=== PATIENT | female | born 1990 | race Caucasian/White ===

== ENCOUNTER 2019-09-23 21:05 | Inpatient (IN) | payer OTHER ==
[2019-09-23] MEDS: ELECTROLYTE-148 SOLN 1,000 ML IV SCH (22:00)
[2019-09-23 22:41] LABS: BASO % 0.2 % (0-2.0); EOS % 0.4 % (0-4.5); HEMATOCRIT 33.9 % (32.4-45.2); HEMOGLOBIN 11.3 GM/dL (10.7-15.3); LYMPH % 26.6 % (8-40); MCH 29.2 pg (25.7-33.7); MCHC 33.4 g/dl (32.0-36.0); MEAN CELL VOLUME 87.5 fl (80-96); MEAN PLT VOLUME 9.8 fl (7.5-11.1); MONO % 7.5 % (3.8-10.2); NEUT % 65.3 % (42.8-82.8); RBC 3.87 M/mm3 (3.60-5.2); RDW 14.4 % (11.6-15.6); RETICULOCYTES 2.27 % (0.5-1.5)
[2019-09-23 22:52] LABS: INR 0.85 (0.83-1.09)
[2019-09-23 22:54] VITALS: BMI 37.5
[2019-09-23 22:55] LABS: ACTIVATED PTT 28.2 SECONDS (25.2-36.5)
[2019-09-23 23:02] LABS: PLATELET COUNT 220 K/MM3 (134-434); PLATELET ESTIMATE ADEQUATE
[2019-09-23] MEDS ORDERED: BUTORPHANOL TARTRATE 1 MG/ML VIAL IVPB ONE (23:08)
[2019-09-23] MEDS ORDERED: PROMETHAZINE HCL 25 MG/1 ML VIAL IVPUSH ONE (23:08)
[2019-09-23] MEDS ORDERED: ZOLPIDEM TARTRATE 5 MG TABLET PO PRN (23:10)
[2019-09-23 23:13] LABS: BLOOD UREA NITROGEN 8.4 mg/dL (7-18); CREATININE 0.9 mg/dL (0.55-1.3); POTASSIUM 4.3 mmol/L (3.5-5.1)
--- NOTE | 2019-09-23 23:15 | HP ---
Past Medical History - Admission Chief Complaint: post date , oligo for induction History of Present Illness: borderline gdm History Source: Patient Limitations to Obtaining History: No Limitations - Past Medical History [employer]SHA[employer]ANCER: No: Alzheimer's, CVA, Dementia, Migraine, Multiple Sclerosis, Peripheral Neuropathy, Parkinson's, Seizure, Syncope, TIA, Vertigo, Other Cardiovascular: No: AFIB, Aneurysm, Aortic Insufficiency, Aortic Stenosis, CAD, CHF, Deep Vein Thrombosis, HTN, Hyperlipdemia, LA, Mitral Insufficiency, Mitral Stenosis, Murmur, Pulmonary Hypertension, Other Pulmonary: No: Asthma, Bronchitis, Cancer, COPD, O2 Dependent, Pneumonia, Previously Intubated, Pulmonary Embolus, Pulmonary Fibrosis, Sleep Apnea, Other Gastrointestinal: No: Ascites, Cancer, Constipation, Crohn's Disease, Diverticulitis, Diverticulosis, Esophageal Varices, Gastritis, GERD, GI Bleed, Hemorrhoids, Hiatal Hernia, Inflamatory Bowel Disease, Irritable Bowel Disease, Pancreatitis, Peptic Ulcer Disease, Ulcerative Colitis, Other Hepatobiliary: No: Cirrhosis, Cholelithiasis, Cholecystitis, Choledocholithiasis , Hepatitis A, Hepatitis B, Hepatitis C, Other Renal/: No: Renal Failure, Renal Inusuff, BPH, Cancer, Hematuria, Hemodialysis , Neurogenic Bladder, Renal Calculi, UTI, Other Reproductive: No: Ectopic , Endometriosis, Fibroids, PID, Polycystic Ovary Syndrome, Postmenopausal, Other ...: 1 ...Para: 0 ...Term: 0 ...: 0 ...Spon : 0 ...Induced : 0 ...Multiple Gestation: 0 ...LMP: 12/15/18 ... Weeks Gestation by Dates: 40.1 ...EDC by Dates: 09/22/19 Heme/Onc: No: Anemia, B12 Deficiency, Bleeding Disorder, Cancer, Current Chemotherapy, Current Radiation Therapy, Hemochromatosis, Hypercoaguable State, Myeloproliferative Synd, Sickle Cell Disease, Sickle Cell Trait, Thrombocytopenia, Other Infectious Disease: No: AIDS, C-Diff, Herpes Zoster, HIV, MRSA, STD's, Tuberculosis, VREF, Other Psych: No: Addictions, Anxiety, Bipolar, Depression, Panic, Psychosis, Schizophrenia, Other Musculoskeletal: No: Bursitis, Chronic low back pain, Hemiparesis, Hemiplegia, Osteoarthritis, Paraplegia, Other Rheumatology: No: Fibromyalgia, Gout, Lupus, Rheumatoid Arthritis, Sarcoidosis, Vasculitis, Other ENT: No: Allergic Rhinitis, Sinusitis, Other Endocrine: No: Dmitri's Disease, [place]'s Disease, Diabetes Insipidus, Diabetes Mellitus, Hyperparathyroidism, Hyperthyroidism, Hypothyroidism, Osteopenia, SIADH, Other Dermatology: No: Basal Cell, Cellulitis, Eczema, Melanoma, Psoriasis, Squamous Cell, Other - Past Surgical History Past Surgical History: No: None, AAA Repair, AICD, Amputation, Appendectomy, Arthrosocopy, AV Fistula/Graft, Bariatric Surgery, Breast Biopsy, Bypass, CABG, Carotid Endarterectomy, Cataract Removal, Cholecystectomy, Colectomy, Colonoscopy, Colostomy, Craniotomy, , Cystectomy, Hernia Repair, Hysterectomy, Ileal Conduit, Ileosotomy, Joint Replacement, Kidney Transplant, Laminectomy, Liver Transplant, Mastectomy, Nephrectomy, Oopherectomy, Orchiectomy, Permanent Pacemaker, Prostatectomy, Splenectomy, Stent, Thoracotomy , TURP, Tonsillectomy, Tubal Ligation, Upper Endoscopy, Valve Replacement, Vasectomy, Vein Stripping/Ligation Hx Myomectomy: No Hx Transabdominal Cerclage: No - Advance Directives Advance Directives: Yes: Living Will - Smoking History Smoking history: Never smoked Have you smoked in the past 12 months: No - Alcohol/Substance Use Hx Alcohol Use: No History of Substance Use: reports: None - Social History Usual Living Arrangement: Yes: With Significant Other Do you think of yourself as: Straight/Heterosexual ADL: Independent History of Recent Travel: No Home Medications - Allergies Allergies/Adverse Reactions: Allergies Allergy/AdvReac Type Severity Reaction Status Date / Time No Known Drug Allergies Allergy Verified 09/23/19 22:11 Family Medical History Family History: Denies Review of Systems - Review of Systems Constitutional: reports: No Symptoms Eyes: reports: No Symptoms HENT: reports: No Symptoms Neck: reports: No Symptoms Cardiovascular: reports: No Symptoms Respiratory: reports: No Symptoms Gastrointestinal: reports: No Symptoms Genitourinary: reports: No Symptoms Breasts: reports: No Symptoms Reported Musculoskeletal: reports: No Symptoms Integumentary: reports: No Symptoms Neurological: reports: No Symptoms Endocrine: reports: No Symptoms Hematology/Lymphatic: reports: No Symptoms Psychiatric: reports: No Symptoms Physical Exam - Maternity Vital Signs: Vital Signs Temperature 98.1 F 09/23/19 21:05 Pulse Rate 64 09/23/19 22:57 Respiratory Rate 18 09/23/19 22:57 Blood Pressure 132/93 09/23/19 22:57 O2 Sat by Pulse Oximetry (%) Constitutional: Yes: Well Nourished, No Distress, Calm Eyes: Yes: WNL, Conjunctiva Clear, EOM Intact HENT: Yes: WNL, Atraumatic, Normocephalic Neck: Yes: WNL, Supple, Trachea Midline Cardiovascular: Yes: WNL, Regular Rate and Rhythm Lungs: Clear to auscultation Breast(s): Yes: WNL - Abdominal Exam/OB Fundal Height: 40 Number of Fetuses: Single Presentation: Vertex Regularity: Irregular Intensity: Mild Monitor Mode: External Heart Rate Location: [facility] Category: I Accelerations: Uniform Decelerations: None - Vaginal Exam/OB Vaginal Bleediing: No Speculum Exam: No Dilatation (cm): 1 Effacement (%): 50 Amniotic Membrane Status: Intact Presentation: Vertex/Position Station: -2 - Physical Exam Musculoskeletal: Yes: WNL Extremities: Yes: WNL Edema: Yes Edema: LUE: 1+, RUE: 1+, LLE: 1+, RLE: 1+ Integumentary: Yes: WNL Deep Tendon Reflex Grade: Normal +2 ...Motor Strength: WNL Psychiatric: Yes: WNL, Alert, Oriented - Labs Lab Results: CBC, BMP 09/23/19 22:15 Hemorrhage Risk Assessment - Risk Factors Medium Risk Factors: Yes: None High Risk Factors: Yes: None Risk Score: 1 Risk Level: Medium Risk Assessment/Plan for cervidil , then pitocin, and arom
[2019-09-23] MEDS ORDERED: DINOPROSTONE 10 MG VAGINAL SUPPOSITORY VG ONE (23:20)
[2019-09-24] MEDS ORDERED: OXYTOCIN 30 UNITS in 0.9% NS 30 UNIT/500 ML INFUS.BAG IVPB ONE (06:13)
[2019-09-24] MEDS: OXYTOCIN 30 UNITS in 0.9% NS 30 UNIT/500 ML INFUS.BAG IVPB SCH (06:20)
[2019-09-24] MEDS ORDERED: BUTORPHANOL TARTRATE 1 MG/ML VIAL ONE ×2 (08:43)
[2019-09-24] MEDS ORDERED: PROMETHAZINE HCL 25 MG/1 ML VIAL ONE (08:43)
[2019-09-24 09:23] LABS: POC NITRAZINE POS
--- NOTE | 2019-09-24 10:33 | PN ---
Progress Note (short form) - Note Progress Note: 8 am, 2 cm, -2, 60 %, srom, uc q 5 mi, asking for stadol , nst reactive
[2019-09-24] MEDS ORDERED: FENTANYL/BUPIVACAINE/NS/PF - PCEA - 50 ML DISP.SYRIN EP ONE ×2 (11:57→17:56)
[2019-09-24] MEDS ORDERED: NALOXONE HCL 0.4 MG/ML VIAL IVPUSH PRN (13:55)
[2019-09-24] MEDS ORDERED: FENTANYL/BUPIVACAINE/NS/PF - PCEA - 50 ML DISP.SYRIN EP SCH (14:00)
[2019-09-24] MEDS ORDERED: CITRIC ACID/SODIUM CITRATE 30 ML UNIT-DOSE CUP PO ONE (21:06)
--- NOTE | 2019-09-24 21:08 | PN ---
Progress Note (short form) - Note Progress Note: 10 am 2 cm -2, 60%, asking for stadol, uc q 3 to 5 min, nst reactive
--- NOTE | 2019-09-24 21:09 | PN ---
Progress Note (short form) - Note Progress Note: 230 pm, 4 cm, -2, 705, nst reactive, uc q 3 min, comfort w epidural , continue pitocin
[2019-09-24] MEDS ORDERED: OXYTOCIN 20 UNITS in 0.9% NS 20 UNIT/1,000 ML INFUS.BAG IV ONE ×2 (21:11→23:19)
--- NOTE | 2019-09-24 21:11 | PN ---
Progress Note (short form) - Note Progress Note: 615 pm 4cm, -2, 60%, no cervical change, uc q 3 min, continue pitocin, nst reactive
--- NOTE | 2019-09-24 21:12 | PN ---
Progress Note (short form) - Note Progress Note: 845 pm, cervix 4 cm, -2, 60%, no cervical change, uc q 3 min, alrearey 18 hrs srom, no cervical change x 7hrs, will proceed to c s
[2019-09-24] MEDS ORDERED: PROPOFOL 20 ML ONE (21:15)
[2019-09-24] MEDS ORDERED: ceFAZolin SODIUM 1 GM VIAL ONE ×2 (21:16→21:17)
[2019-09-24] MEDS ORDERED: OXYTOCIN 10 UNITS/ML VIAL ONE ×2 (21:17→21:24)
[2019-09-24] MEDS ORDERED: SODIUM CHLORIDE 0.9% P/F 10 ML VIAL IJ ONE (21:19)
[2019-09-24] MEDS ORDERED: KETOROLAC TROMETHAMINE 30 MG/1 ML VIAL ONE ×2 (21:19→21:58)
[2019-09-24] MEDS ORDERED: PHENYLEPHRINE HCL 10 MG/1 ML SINGLE DOSE VIAL ONE (21:25)
[2019-09-24] MEDS ORDERED: MIDAZOLAM HCL 2 MG/2 ML SINGLE DOSE VIAL ONE (22:04)
[2019-09-24] MEDS ORDERED: ONDANSETRON 4 MG/2 ML VIAL IVPUSH PRN (22:13)
[2019-09-24] MEDS ORDERED: ACETAMINOPHEN 325 MG TABLET (FP) PO PRN (22:13)
[2019-09-24] MEDS ORDERED: morphine SULFATE/PF 0.5 MG/ML (2cc Syringe - QUVA) EP ONE (22:13)
[2019-09-24] MEDS ORDERED: IBUPROFEN 600 MG TABLET (FP) PO PRN (22:13)
[2019-09-24] MEDS ORDERED: IBUPROFEN 800 MG/8 ML IJ IVPB PRN (22:45)
[2019-09-24] MEDS ORDERED: METHYLERGONOVINE MALEATE 0.2 MG/1 ML AMP IM PRN (22:45)
[2019-09-24] MEDS ORDERED: SENNOSIDES/DOCUSATE COMBO (SENNA PLUS) TABLET (UD) PO PRN (22:45)
[2019-09-24] MEDS ORDERED: oxyCODONE HCL 5 MG TABLET PO PRN ×2 (22:45)
--- NOTE | 2019-09-24 22:57 | OP ---
Operative Note - Note: Operative Date: 09/24/19 Pre-Operative Diagnosis: f t progress Operation: primary lt c s Post-Operative Diagnosis: Same as Pre-op Surgeon: Markel Schultz Clinical Resource Director: Jeff Perdue Anesthesiologist/STRUCTURAL ARCHITECT: Trina Calvillo Anesthesia: Epidural Estimated Blood Loss (mls): 800 (no complications ) Operative Report Dictated: Yes
[2019-09-24] MEDS: OXYTOCIN 20 UNITS in 0.9% NS 20 UNIT/1,000 ML INFUS.BAG IV SCH (23:00)
--- NOTE | 2019-09-25 00:24 | OP ---
DATE OF OPERATION: 09/24/2019 PREOPERATIVE DIAGNOSIS: Failure to progress. POSTOPERATIVE DIAGNOSIS: Occiput posterior. PROCEDURE: Primary low transverse section. SURGEON: Markel Schultz MD. [facility]: DYLAN Posey. ANESTHESIOLOGIST: Trina Calvillo MD. INDICATION: This is a 28-year-old female patient, oligohydramnios, 40 weeks and 2 days , was brought into the hospital for induction process of labor, and patient came in on September 23. Patient had a Cervidil for the morning 8 hours, and after Cervidil patient had a contraction spontaneously, then spontaneous rupture of membrane around 3:30 in the morning of September 24. So patient started having contractions by herself more aggressively, and every 4 to 5 hours the patient received augmentation Pitocin around 6 o'clock on September 24, and patient's cervix progressed to 2 cm around 8 o'clock in the morning, 60%, -2, and patient has continued to receive Pitocin, and patient asked for pain medication, and patient received Stadol IV pain medication around 10 o'clock in the morning, and patient continued laboring, and around 2 o'clock patient received epidural, cervix was about 3 cm, 60%, -2, and patient continued to receive Pitocin, and was laboring with epidural. Around 6:30 patient's cervix still remained the same, 3 to 4 cm and 60%, -2, and around 8:45 cervix still remained about 3 to 4 cm, no cervical change. The patient had spontaneous rupture around 18 hours at this time, and the cervix still options and risks and benefits explained to the patient for section, and patient agreed and patient taken to OR for failure to progress for primary low transverse section. Patient already had epidural, so patient received top-off for re-dose of epidural anesthesia. The patient was comfortable. DESCRIPTION OF PROCEDURE: Patient was placed on operating table in supine position. The patient's abdomen and pelvis were prepped and draped in the usual sterile manner. Pfannenstiel incision was made. The incision was made through skin, subcutaneous tissue, until the fascia was nicked in the midline. The fascia was extended bilaterally. Intraperitoneal cavity was entered, bladder flap was created. Low transverse segment was entered, baby was delivered from OP position. Baby was handed over to the coat room attendant after umbilical cord was doubly clamped and cut. Placenta was removed. Uterus was closed in single layer, first layer interlocking Vicryl suture, good hemostasis, and both gutters were cleaned. Bladder flap was closed and draining clear urine. Blood loss about 800 mL. Patient tolerated procedure well. No complications. Both ovaries, fallopian tubes, uterus were within normal limits. Patient was transferred to recovery room in stable condition draining clear urine. MD KILEY VILLAVICENCIO/[id number]
[2019-09-25 09:04] LABS: BASO % 0.2 % (0-2.0); EOS % 0.2 % (0-4.5); HEMATOCRIT 29.2 % (32.4-45.2); HEMOGLOBIN 9.4 GM/dL (10.7-15.3); LYMPH % 13.1 % (8-40); MCH 28.5 pg (25.7-33.7); MCHC 32.1 g/dl (32.0-36.0); MEAN CELL VOLUME 88.7 fl (80-96); MEAN PLT VOLUME 9.6 fl (7.5-11.1); MONO % 5.1 % (3.8-10.2); NEUT % 81.4 % (42.8-82.8); PLATELET COUNT 190 K/MM3 (134-434); RDW 14.7 % (11.6-15.6); WHITE BLOOD COUNT 12.9 K/mm3 (4.0-10.0)
--- NOTE | 2019-09-25 09:50 | PN ---
Progress Note, Physician Chief Complaint: s/p csection under epidural anesthesia postop day one History of Present Illness: epidural duramorph for post op analgesia - Current Medication List Current Medications: Active Medications Acetaminophen (Tylenol -) 650 mg PO Q4H PRN PRN Reason: FEVER Bisacodyl (Dulcolax Suppository -) 10 mg RC PRN PRN PRN Reason: CONSTIPATION Diphenhydramine HCl (Benadryl Injection -) 25 mg IVPUSH Q4H PRN PRN Reason: Pruritis Enoxaparin Sodium (Lovenox -) 40 mg SQ DAILY [facility] Parenteral Electrolytes (Plasma-Lyte 148 -) 1,000 mls @ 125 mls/hr IV ASDIR [facility] Last Admin: 09/23/19 22:00 Dose: 125 mls/hr Oxytocin/Sodium Chloride (Normal Saline+20 Units Oxytocin -) 20 unit in 1,000 mls @ 125 mls/hr IV ASDIR [facility] Last Admin: 09/24/19 23:00 Dose: 125 mls/hr Ibuprofen (Motrin -) 600 mg PO Q4H PRN PRN Reason: PAIN LEVEL 1 - 3 Ibuprofen (Caldolor Injection -) 800 mg IVPB Q8H PRN PRN Reason: PAIN LEVEL 6-10 Methylergonovine Maleate (Methergine Injection -) 0.2 mg IM Q4H PRN PRN Reason: Excessive Bleeding (L&D) Naloxone HCl (Narcan -) 0.4 mg IVPUSH PRN PRN PRN Reason: Sedation Ondansetron HCl (Zofran Injection) 4 mg IVPUSH Q4H PRN PRN Reason: NAUSEA Oxycodone HCl (Roxicodone -) 5 mg PO Q4H PRN PRN Reason: PAIN LEVEL 4 - 6 Oxycodone HCl (Roxicodone -) 10 mg PO Q4H PRN PRN Reason: PAIN LEVEL 7 - 10 Senna/Docusate Sodium (Pericolace -) 2 tablet PO HS PRN PRN Reason: CONSTIPATION Simethicone (Mylicon -) 80 mg PO Q4H PRN PRN Reason: GAS Zolpidem Tartrate (Ambien -) 5 mg PO HS PRN PRN Reason: INSOMNIA Last Admin: 09/24/19 02:20 Dose: 5 mg - Objective Vital Signs: Vital Signs Temperature 98.9 F 09/25/19 08:00 Pulse Rate 77 09/25/19 08:00 Respiratory Rate 20 09/25/19 08:00 Blood Pressure 134/86 09/25/19 08:00 O2 Sat by Pulse Oximetry (%) 98 09/24/19 23:30 Constitutional: Yes: Well Nourished Cardiovascular: Yes: WNL Respiratory: Yes: WNL Gastrointestinal: Yes: WNL Labs: CBC, BMP 09/25/19 08:19 09/23/19 22:15 INR, PTT INR 0.85 (0.83-1.09) 09/23/19 22:15 Assessment/Plan No adverse effects of anesthetic, pain controlled, dept of anesthesiology will sign off care at this time
[2019-09-25] MEDS: ENOXAPARIN NA (PORCINE) 40 MG/0.4 ML DISP.SYRIN SQ SCH (10:05)
[2019-09-25] MEDS: SIMETHICONE 80 MG TAB.CHEW (FP) PO PRN (13:20)
[2019-09-25] MEDS: IBUPROFEN 600 MG TABLET (FP) PO PRN (13:35)
[2019-09-25] MEDS: ACETAMINOPHEN 325 MG TABLET (FP) PO PRN (13:36)
--- NOTE | 2019-09-25 15:23 | PN ---
Post Progress Note Post Day: 1 Type of Delivery: Primary C/S Vital Signs: Vital Signs Temperature 98.2 F 09/25/19 12:00 Pulse Rate 74 09/25/19 12:00 Respiratory Rate 20 09/25/19 14:00 Blood Pressure 126/70 09/25/19 12:00 O2 Sat by Pulse Oximetry (%) 98 09/24/19 23:30 Breast Exam: Yes: Soft Uterus: Yes: Fundus Firm, Fundus below umbilicus Incision: Yes: Dressing dry and intact, Sutures intact Abdomen/GI: Yes: Abdomen soft, Passing flatus, Tolerating PO Lochia: Yes: Serosa Lochia, amount: Small Extremities: Yes: Calves non-tender Perineum: Yes: Intact Activity: Ambulating (doing well ) - Labs Labs: CBC WBC 12.9 K/mm3 (4.0-10.0) H 09/25/19 08:19 RBC 3.30 M/mm3 (3.60-5.2) L 09/25/19 08:19 Hgb 9.4 GM/dL (10.7-15.3) L 09/25/19 08:19 Hct 29.2 % (32.4-45.2) L 09/25/19 08:19 MCV 88.7 fl (80-96) 09/25/19 08:19 MCH 28.5 pg (25.7-33.7) 09/25/19 08:19 MCHC 32.1 g/dl (32.0-36.0) 09/25/19 08:19 RDW 14.7 % (11.6-15.6) 09/25/19 08:19 Plt Count 190 K/MM3 (134-434) 09/25/19 08:19 MPV 9.6 fl (7.5-11.1) 09/25/19 08:19 Absolute Neuts (auto) 10.5 K/mm3 (1.5-8.0) H 09/25/19 08:19 Neutrophils % 81.4 % (42.8-82.8) D 09/25/19 08:19 Lymphocytes % 13.1 % (8-40) D 09/25/19 08:19 Monocytes % 5.1 % (3.8-10.2) 09/25/19 08:19 Eosinophils % 0.2 % (0-4.5) 09/25/19 08:19 Basophils % 0.2 % (0-2.0) 09/25/19 08:19 Nucleated RBC % 0 % (0-0) 09/25/19 08:19 Platelet Estimate Adequate 09/23/19 22:15 Platelet Comment Rare giant plts 09/23/19 22:15 Retic Count 2.27 % (0.5-1.5) H 09/23/19 22:15 Haptoglobin 78 mg/dL (33-278) 09/23/19 22:15
[2019-09-25] MEDS: ELECTROLYTE-148 SOLN 1,000 ML IV SCH (19:51)
[2019-09-25] MEDS: OXYTOCIN 30 UNITS in 0.9% NS 30 UNIT/500 ML INFUS.BAG IVPB SCH (19:52)
[2019-09-25] MEDS ORDERED: BISACODYL 10 MG SUPP.RECT RC PRN (22:45)
[2019-09-26] MEDS: IBUPROFEN 600 MG TABLET (FP) PO PRN ×5 (00:01→20:25)
[2019-09-26] MEDS: ACETAMINOPHEN 325 MG TABLET (FP) PO PRN ×5 (00:01→20:26)
[2019-09-26] MEDS: OXYTOCIN 20 UNITS in 0.9% NS 20 UNIT/1,000 ML INFUS.BAG IV SCH (00:02)
[2019-09-26] MEDS: SIMETHICONE 80 MG TAB.CHEW (FP) PO PRN ×5 (05:46→20:25)
[2019-09-26] MEDS: ENOXAPARIN NA (PORCINE) 40 MG/0.4 ML DISP.SYRIN SQ SCH (10:14)
--- NOTE | 2019-09-26 11:01 | PN ---
Post Progress Note Type of Delivery: Primary C/S Vital Signs: Vital Signs Temperature 97.6 F 09/25/19 21:36 Pulse Rate 69 09/25/19 21:36 Respiratory Rate 20 09/25/19 21:36 Blood Pressure 129/88 09/25/19 21:36 O2 Sat by Pulse Oximetry (%) 98 09/24/19 23:30 Breast Exam: Yes: Soft Incision: Yes: Sutures intact Abdomen/GI: Yes: Abdomen soft Lochia: Yes: Rubra Lochia, amount: Small Extremities: Yes: Calves non-tender - Labs Labs: CBC WBC 12.9 K/mm3 (4.0-10.0) H 09/25/19 08:19 RBC 3.30 M/mm3 (3.60-5.2) L 09/25/19 08:19 Hgb 9.4 GM/dL (10.7-15.3) L 09/25/19 08:19 Hct 29.2 % (32.4-45.2) L 09/25/19 08:19 MCV 88.7 fl (80-96) 09/25/19 08:19 MCH 28.5 pg (25.7-33.7) 09/25/19 08:19 MCHC 32.1 g/dl (32.0-36.0) 09/25/19 08:19 RDW 14.7 % (11.6-15.6) 09/25/19 08:19 Plt Count 190 K/MM3 (134-434) 09/25/19 08:19 MPV 9.6 fl (7.5-11.1) 09/25/19 08:19 Absolute Neuts (auto) 10.5 K/mm3 (1.5-8.0) H 09/25/19 08:19 Neutrophils % 81.4 % (42.8-82.8) D 09/25/19 08:19 Lymphocytes % 13.1 % (8-40) D 09/25/19 08:19 Monocytes % 5.1 % (3.8-10.2) 09/25/19 08:19 Eosinophils % 0.2 % (0-4.5) 09/25/19 08:19 Basophils % 0.2 % (0-2.0) 09/25/19 08:19 Nucleated RBC % 0 % (0-0) 09/25/19 08:19 Platelet Estimate Adequate 09/23/19 22:15 Platelet Comment Rare giant plts 09/23/19 22:15 Retic Count 2.27 % (0.5-1.5) H 09/23/19 22:15 Haptoglobin 78 mg/dL (33-278) 09/23/19 22:15 Problem List - Problems (1) delivery delivered Code(s): O82 - ENCOUNTER FOR DELIVERY WITHOUT INDICATION Assessment/Plan Exam WNL. Healing well. BS pos. Flatus PO. No CVA, extrem T. No nursing. Breast care discussed. Instructions given. Discharge tomorrow AM.
[2019-09-27] MEDS: ACETAMINOPHEN 325 MG TABLET (FP) PO PRN ×3 (00:13→10:31)
[2019-09-27] MEDS: IBUPROFEN 600 MG TABLET (FP) PO PRN ×3 (00:13→10:30)
[2019-09-27] MEDS: SIMETHICONE 80 MG TAB.CHEW (FP) PO PRN ×3 (00:13→10:30)
[2019-09-27 01:41] VITALS: TEMP 98
[2019-09-27] MEDS: ENOXAPARIN NA (PORCINE) 40 MG/0.4 ML DISP.SYRIN SQ SCH (10:00)
[2019-09-27 10:46] LABS: BASO % 0.2 % (0-2.0); EOS % 0.9 % (0-4.5); HEMATOCRIT 26.8 % (32.4-45.2); HEMOGLOBIN 8.9 GM/dL (10.7-15.3); LYMPH % 17.1 % (8-40); MCH 29.1 pg (25.7-33.7); MCHC 33.2 g/dl (32.0-36.0); MEAN CELL VOLUME 87.6 fl (80-96); MEAN PLT VOLUME 8.4 fl (7.5-11.1); MONO % 5.1 % (3.8-10.2); NEUT % 76.7 % (42.8-82.8); PLATELET COUNT 262 K/MM3 (134-434); RBC 3.06 M/mm3 (3.60-5.2); RDW 14.7 % (11.6-15.6); WHITE BLOOD COUNT 10.9 K/mm3 (4.0-10.0)
[2019-09-27 12:31] VITALS: BP 127/86; PULSE 90
--- NOTE | 2019-09-27 12:36 | PN ---
Progress Note (short form) - Note Progress Note: pod 3 doing well, no c/o . passing gas , no dizziness CBC, BMP 09/27/19 10:27 09/23/19 22:15 abdomen soft, no distension, no cva incision dry, clean no calf tenderness no excess vaginal bleeding plan d/c home, follow up office 1 week cont iron, vit
--- NOTE | 2019-09-28 13:19 | PATH ---
Surgical Pathology Report Patient Name: PATIENCE LANDRUM Med. Rec. 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 Electronically Signed Donn Downing M.D. Gross Description The specimen is received fresh labeled placenta and is a 612 gram, 18.4 x 13.0 x 2.8 cm. placenta with attached membranes and umbilical cord. The attached membranes are ramirez, translucent with focal opacities and insert marginally. The umbilical cord measures 40 cm. in length and averages 1 cm. in diameter. The cord inserts eccentrically, 5 cm. to the nearest margin. No true knots or strictures are identified. Cut surface of the umbilical cord reveals 3 vessels. The surface is guardado-blue with minimal fibrin deposition and appropriate caliber vessels. The maternal surface is red-brown with focal defects. Sectioning reveals red-brown, spongy parenchyma. No lesions are identified. Weekend Receptionist sections are submitted in three cassettes as follows: 1- membrane rolls and umbilical cord; 2-3- full thickness sections of placenta. DL/09/25/2019 saudi/09/25/2019
== END 2019-09-27 12:25 | disposition home or self-care (01) | DRG 788 ==
LOC: JLDR 21:05 → J3W 09-25 00:05
PROVIDERS: ADMIT Obstetrics & Gynecology; ATTEND Obstetrics & Gynecology
PROC: 10D00Z1 Extraction of Products of Conception, Low, Open Approach (ICD-10-PCS; principal; 2019-09-24)
DX: O62.1 Secondary uterine inertia (principal); O48.0 Post-term pregnancy; Z3A.40 40 weeks gestation of pregnancy; O42.92 Full-term premature rupture of membranes, unspecified as to length of time between rupture and onset of labor; Z37.0 Single live birth
CPT/HCPCS: 36415; 80048; 82977; 83010; 83986-QW; 84450; 84460; 84550; 85025; 85044; 85610; 85730; 86593; 86850; 86900; 86901; 87389; 88307-TC